=== PATIENT | female | born 1965 | race African-American/Black ===

== ENCOUNTER 2019-02-09 23:45 | Inpatient (IN) | payer OTHER, MEDICAID ==
[~2019-02-09] VITALS: Ht 167.6 cm; Wt 102.1 kg
[2019-02-10] MEDS ORDERED: VANCOMYCIN 1 G PREMIX 200 ML IV STA (04:23)
[2019-02-10] MEDS ORDERED: MORPHINE SULFATE 4 MG/ML CPJ (NOT FOR IM USE) IV ONE (04:30)
[2019-02-10] MEDS ORDERED: ONDANSETRON HCL 4MG/2ML INJ IV ONE (04:30)
[2019-02-10] MEDS ORDERED: PIPERACILLIN/TAZOBACTAM 3.375GM/50ML PREMIX IV SCH (04:30)
[2019-02-10 04:31] LABS: BASOPHILS % 0.8 % (0.0-2.0); EOSINOPHILS % 2.9 % (0.0-5.0); HEMATOCRIT. 36.1 % (36.0-48.0); HEMOGLOBIN. 12.1 g/dL (12.0-16.0); MEAN CORPUSCULAR HEMOGLOBIN 28.3 pg (28.0-32.0); MEAN CORPUSCULAR VOLUME 84.2 fL (81.0-99.0); MEAN PLATELET VOLUME 8.4 fl (7.4-10.4); MONOCYTES % 11.6 % (2.0-8.0); NEUTROPHILS % 43.7 % (40.0-76.0); PLATELET 257 x1000/uL (130-400); RED BLOOD CELL COUNT 4.28 mill/uL (4.2-5.4); RED CELL DISTRIBUTION WIDTH 14.7 % (11.6-14.6)
[2019-02-10 04:34] LABS: CHLORIDE 107 mEq/L (98-107)
[2019-02-10 05:40] LABS: CLARITY URINE CLOUDY (CLEAR); COLOR URINE YELLOW (YELLOW); KETONES URINE NEGATIVE (NEGATIVE); LEUKOCYTE ESTERASE URINE 1+ (NEGATIVE); NITRITE URINE NEGATIVE (NEGATIVE); OCCULT BLOOD URINE NEGATIVE (NEGATIVE); PROTEIN URINE NEGATIVE (NEGATIVE); SPECIFIC GRAVITY URINE 1.019 (1.005-1.030); UROBILINOGEN URINE 0.2 E.U./dL (0.2-1.0)
[2019-02-10] MEDS ORDERED: CLONIDINE 0.1MG TABLET PO PRN (10:15)
[2019-02-10] MEDS ORDERED: NITROGLYCERIN 0.4MG TABLET SL SL PRN (10:15)
[2019-02-10] MEDS ORDERED: ZOLPIDEM TARTRATE 5MG TABLET PO PRN (10:15)
[2019-02-10] MEDS ORDERED: MAGNESIUM/ALUMINUM HYDROXIDE/SIMETHICONE 30ML UDC PO PRN (10:15)
[2019-02-10] MEDS ORDERED: ONDANSETRON HCL 4MG/2ML INJ IV PRN (10:15)
[2019-02-10] MEDS ORDERED: IPRATROPIUM/ALBUTEROL 0.5-3(2.5)MG/3ML NEB INH PRN (10:15)
[2019-02-10] MEDS ORDERED: DOCUSATE SODIUM 100MG CAPSULE PO PRN (10:15)
[2019-02-10] MEDS ORDERED: TRAMADOL 50MG TABLET PO PRN (10:15)
[2019-02-10] MEDS ORDERED: LORAZEPAM 0.5MG TABLET PO PRN (10:15)
[2019-02-10] MEDS ORDERED: KETOROLAC 15MG/ML VIAL IV PRN (10:15)
[2019-02-10] MEDS ORDERED: GUAIFENESIN 200MG/10ML SUGAR FREE UDC PO PRN (10:15)
[2019-02-10] MEDS ORDERED: ACETAMINOPHEN 325MG TABLET PO PRN (10:15)
[2019-02-10] MEDS ORDERED: ENOXAPARIN 30MG/0.3ML SYR SUBCUT SCH (11:00)
[2019-02-10] MEDS ORDERED: ENOXAPARIN 40MG/0.4ML SYR SUBCUT SCH (11:00)
[2019-02-10 11:31] VITALS: BP 139/87
[2019-02-10] MEDS ORDERED: HYDR25TA PO (11:58)
[2019-02-10] MEDS ORDERED: IBUP-2030 PO (11:58)
[2019-02-10] MEDS ORDERED: DICL50TA9 PO (11:58)
[2019-02-10] MEDS ORDERED: HYDR-4001 PO (11:58)
[2019-02-10] MEDS ORDERED: ASPI-1159 PO (11:58)
[2019-02-10] MEDS ORDERED: VENL37.588 PO (11:58)
[2019-02-10] MEDS ORDERED: BENA20TA10 PO (11:58)
[2019-02-10] MEDS ORDERED: AMLO5TAB88 MT (11:58)
[2019-02-10] MEDS ORDERED: GABA-290 PO (11:58)
[2019-02-10 12:00] VITALS: BP 144/85
[2019-02-10] MEDS ORDERED: PIPERACILLIN/TAZ 3.375G PREMIX 50 ML IV SCH (12:00)
[2019-02-10] MEDS ORDERED: VANCOMYCIN 1 G PREMIX 200 ML IV SCH (13:00)
[2019-02-10] MEDS ORDERED: GABAPENTIN 100MG CAPSULE PO SCH (14:00)
[2019-02-10 16:00] VITALS: BP 133/72
[2019-02-10 17:08] LABS: CHLORIDE 107 mEq/L (98-107)
[2019-02-10 17:17] LABS: LDL CHOLESTEROL 97 mg/dL (5-100)
[2019-02-10 17:18] LABS: HDL CHOLESTEROL 28 mg/dL (40-59)
[2019-02-10 17:23] LABS: T4 FREE 0.82 ng/dL (0.76-1.46)
[2019-02-10 18:22] VITALS: BP 106/70
[2019-02-10] MEDS ORDERED: ASCORBIC ACID 500 MG TABLET PO SCH (21:00)
[2019-02-10] MEDS ORDERED: FAMOTIDINE 20MG TABLET PO SCH (21:00)
[2019-02-11] MEDS ORDERED: ZINC SULFATE 220 MG ( 50 ) CAPSULE PO SCH (09:00)
== END 2019-02-10 19:25 | disposition home or self-care (01) | DRG 603 ==
LOC: ER 23:45 → EDBEDREQ 02-10 04:27 → 6EST 02-10 05:42 → EDBEDREQ 02-10 05:57 → EDBEDREQTM 02-10 05:57 → ENRESERV 02-10 08:09
PROVIDERS: ADMIT Internal Medicine; ATTEND Internal Medicine
DX: L03.116 Cellulitis of left lower limb (principal); N39.0 Urinary tract infection, site not specified; L97.919 Non-pressure chronic ulcer of unspecified part of right lower leg with unspecified severity; L97.929 Non-pressure chronic ulcer of unspecified part of left lower leg with unspecified severity; I73.9 Peripheral vascular disease, unspecified; I10 Essential (primary) hypertension; I83.009 Varicose veins of unspecified lower extremity with ulcer of unspecified site; R73.9 Hyperglycemia, unspecified; R74.0 Nonspecific elevation of levels of transaminase and lactic acid dehydrogenase [LDH]; E66.9 Obesity, unspecified; I83.019 Varicose veins of right lower extremity with ulcer of unspecified site; R73.03 Prediabetes; K21.9 Gastro-esophageal reflux disease without esophagitis; Z68.36 Body mass index [BMI] 36.0-36.9, adult
CPT/HCPCS: 36415; 80061; 83036; 84439; 84443; 93923; 93970; 96365; 96366; 96375; 99285; J1650; J1885; J2270; J2405; J2543; J3370

== ENCOUNTER 2020-11-02 01:28 | Emergency (ER) | payer OTHER, MEDICAID ==
[~2020-11-02] VITALS: Ht 167.6 cm; Wt 98.0 kg
[~2020-11-02 01:28] MED LIST: AMLO5TAB88 MT; ASPI-1497 PO; BENA20TA10 PO; DICL50TA9 PO; GABA-290 PO; HYDR-4001 PO; HYDR25TA PO; IBUP-2030 PO; VENL37.588 PO
[2020-11-02 03:01] VITALS: BP 137/91
== END 2020-11-02 03:03 | disposition home or self-care (01) ==
LOC: ER 01:28
DX: R00.2 Palpitations (principal); F41.9 Anxiety disorder, unspecified; I10 Essential (primary) hypertension; Z79.899 Other long term (current) drug therapy; Z79.82 Long term (current) use of aspirin
CPT/HCPCS: 93005; 99283